=== PATIENT | female | born 1995 | race Caucasian/White ===

== ENCOUNTER 2019-10-16 20:54 | Emergency (ER) | payer BC, OTHER ==
[~2019-10-16] VITALS: Ht 160 cm; Wt 50.0 kg
[2019-10-16] MEDS ORDERED: LACTATED RINGERS 1,000 ML IV STA (21:04)
--- NOTE | 2019-10-16 21:10 | ED GI ---
General Chief Complaint: Abdominal/GI Problems Stated Complaint: VOMITING Source of Information: Patient History of Present Illness Date Seen by Provider: Oct 16, 2019 Time Seen by Provider: 20:55 Initial Comments PT ARRIVES VIA POV FROM HOME STATES "I'M DEHYDRATED" STATES SHE BEGAN HAVING NAUSEA AND VOMITING 1 HOUR AGO, AT 1945--HAS VOMITED X 4 NO DIARRHEA. STOOLS HAVE BEEN "SOFT" BUT FORMED NO ABDOMINAL PAIN NO FEVER NO URINARY SYMPTOMS--LAST VOID AT 1730 STATES SHE FELT COMPLETELY FINE ALL DAY UNTIL AN HOUR AGO NO KNOWN SICK CONTACTS --LIVES AT HOME WITH , BOTH ATE THE SAME THINGS AND HE IS NOT ILL NO SUSPICIOUS FOODS--ATE YOGURT AND GRANOLA FOR BREAKFAST, MAC AND CHEESE AND CRACKERS AND TRAIL MIX FOR LUNCH/THIS AFTERNOON ARRIVES WITH A NEARLY EMPTY 1 LITER BOTTLE OF WATER--STATES SHE DRINKS 1 LITER BOTTLE EVERY DAY PT STATES THIS IS A CHRONIC PROBLEMS SINCE 2008--STATES IT USED TO HAPPEN "REGULARLY" BUT NOW ONLY "SPORADICALLY" --NO DX. STATES LAST EPISODE WAS NOVEMBER 2018 LMP 09/07/19. NO CONTROL. STATES PERIODS ARE ALWAYS IRREGULAR. PCP: NONE--IS [facility] Allergies and Home Medications Allergies Coded Allergies: No Known Drug Allergies (Unverified , 10/16/19) Home Medications Ondansetron 8 Mg Tab.rapdis, 8 MG PO Q4H PRN for NAUSEA/VOMITING Prescribed by: SOMMER ALLEN on 10/16/192138 Patient Home Medication List Home Medication List Reviewed: Yes Review of Systems Review of Systems Constitutional: No chills, No diaphoresis, No dizziness, No fever; malaise EENTM: No Symptoms Reported Respiratory: No Symptoms Reported Cardiovascular: No Symptoms Reported Gastrointestinal: See HPI; Denies Abdominal Pain, Denies Constipated, Denies Diarrhea; Nausea, Vomiting Genitourinary: No Symptoms Reported Musculoskeletal: no symptoms reported Skin: no symptoms reported Psychiatric/Neurological: No Symptoms Reported Endocrine: No Symptoms Reported Hematologic/Lymphatic: No Symptoms Reported Past Ruuphor-Gsibqq-Tyshuw Hx Past Med/Social Hx: Reviewed and Corrections made Patient Social History Alcohol Use: Rarely Uses Alcohol Beverage of Choice: Wine Recreational Drug Use: No Smoking Status: Never a Smoker Recent Foreign Travel: No Contact w/Someone Who Travel: No Past Medical History Surgeries: Yes (BENIGN TUMOR FROM LEFT ARM 2000:WISDOM TEETH REMOVED 2009) Respiratory: No Cardiac: No Neurological: No Last Menstrual Period: Sep 07, 2019 Reproductive Disorders: Yes (IRREGULAR PERIODS) Female Reproductive Disorders: Menstrual Problems Genitourinary: No Gastrointestinal: Yes (FREQUENT NAUSEA/VOMITING) Gastroesophageal Reflux Musculoskeletal: No Endocrine: No HEENT: No Cancer: No Psychosocial: No Integumentary: No Blood Disorders: No Adverse Reaction/Blood Tranf: No Physical Exam Vital Signs Vital Signs - First Documented 10/16/19 21:01 Temp 36.7 Pulse 109 Resp 18 B/P (MAP) 113/84 (94) Pulse Ox 99 Capillary Refill : Less Than 3 Seconds Height/Weight/BMI Height: '" Weight: lbs. oz. kg; 19.00 BMI Method: General Appearance: WD/WN, no apparent distress, other (WALKS IN ON HER OWN, WITH HEAVY BLANKET, AND NEARLY EMPTY 1 LITER BOTTLE OF WATER. DOES NOT APPEAR ILL OR TO BE IN ANY DISCOMFORT OR DISTRESS. WALKS UPRIGHT AND MOVES WITHOUT DIFFICULTY. 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, no motor/sensory deficits, alert, normal mood/affect, oriented x 3 Skin: normal color, warm/dry Progress/Results/Core Measures Results/Orders Lab Results Laboratory Tests Test 10/16/19 21:05 10/16/19 21:10 Range/Units Urine Color YELLOW Urine Clarity CLEAR Urine pH 6.0 5-9 Urine Specific [place] 1.010 L 1.016-1.022 Urine Protein NEGATIVE NEGATIVE Urine Glucose (UA) NEGATIVE NEGATIVE Urine Ketones NEGATIVE NEGATIVE Urine Nitrite NEGATIVE NEGATIVE Urine Bilirubin NEGATIVE NEGATIVE Urine Urobilinogen 0.2 < = 1.0 MG/DL Urine Leukocyte Esterase TRACE H NEGATIVE Urine RBC (Auto) NEGATIVE NEGATIVE Urine RBC NONE /HPF Urine WBC 0-2 /HPF Urine Squamous Epithelial Cells 5-10 /HPF Urine Crystals NONE /LPF Urine Bacteria TRACE /HPF Urine Casts NONE /LPF Urine Mucus NEGATIVE /LPF Urine Culture Indicated NO Urine Opiates Screen NEGATIVE NEGATIVE Urine Oxycodone Screen NEGATIVE NEGATIVE Urine Methadone Screen NEGATIVE NEGATIVE Urine Propoxyphene Screen NEGATIVE NEGATIVE Urine Barbiturates Screen NEGATIVE NEGATIVE Ur Tricyclic Antidepressants Screen NEGATIVE NEGATIVE Urine Phencyclidine Screen NEGATIVE NEGATIVE Urine Amphetamines Screen NEGATIVE NEGATIVE Urine Methamphetamines Screen NEGATIVE NEGATIVE Urine Benzodiazepines Screen NEGATIVE NEGATIVE Urine Cocaine Screen NEGATIVE NEGATIVE Urine Cannabinoids Screen NEGATIVE NEGATIVE White Blood Count 15.2 H 4.3-11.0 10^3/uL Red Blood Count 5.26 4.35-5.85 10^6/uL Hemoglobin 14.6 11.5-16.0 G/DL Hematocrit 42 35-52 % Mean Corpuscular Volume 80 80-99 FL Mean Corpuscular Hemoglobin 28 25-34 PG Mean Corpuscular Hemoglobin Concent 35 32-36 G/DL Red Cell Distribution Width 12.8 10.0-14.5 % Platelet Count 312 130-400 10^3/uL Mean Platelet Volume 10.1 7.4-10.4 FL Neutrophils (%) (Auto) 84 H 42-75 % Lymphocytes (%) (Auto) 11 L 12-44 % Monocytes (%) (Auto) 4 0-12 % Eosinophils (%) (Auto) 0 0-10 % Basophils (%) (Auto) 0 0-10 % Neutrophils # (Auto) 12.7 H 1.8-7.8 X 10^3 Lymphocytes # (Auto) 1.7 1.0-4.0 X 10^3 Monocytes # (Auto) 0.7 0.0-1.0 X 10^3 Eosinophils # (Auto) 0.0 0.0-0.3 10^3/uL Basophils # (Auto) 0.0 0.0-0.1 10^3/uL Neutrophils % (Manual) 82 % Lymphocytes % (Manual) 11 % Monocytes % (Manual) 5 % Eosinophils % (Manual) 0 % Basophils % (Manual) 0 % Band Neutrophils 0 % Reactive Lymphocytes 2 % Blood Morphology Comment NORMAL Sodium Level 138 135-145 MMOL/L Potassium Level 3.6 3.6-5.0 MMOL/L Chloride Level 106 98-107 MMOL/L Carbon Dioxide Level 19 L 21-32 MMOL/L Anion Gap 13 5-14 MMOL/L Blood Urea Nitrogen 10 7-18 MG/DL Creatinine 0.81 0.60-1.30 MG/DL Estimat Glomerular Filtration Rate > 60 BUN/Creatinine Ratio 12 Glucose Level 108 H 70-105 MG/DL Calcium Level 9.6 8.5-10.1 MG/DL Corrected Calcium 8.5-10.1 MG/DL Magnesium Level 1.8 1.6-2.4 MG/DL Total Bilirubin 1.2 H 0.1-1.0 MG/DL Aspartate Amino Transf (AST/SGOT) 14 5-34 U/L Alanine Aminotransferase (ALT/SGPT) 6 0-55 U/L Alkaline Phosphatase 66 40-136 U/L Total Protein 7.8 6.4-8.2 GM/DL Albumin 4.7 H 3.2-4.5 GM/DL Amylase Level 96 25-125 U/L Lipase 31 8-78 U/L Serum Test, Qualitative NEGATIVE NEGATIVE Serum Alcohol < 10 <10 MG/DL My Orders Orders - SOMEMR ALLEN DO Ed Iv/Invasive Line Start (10/16/19 21:04) Urine Bedside (10/16/19 21:04) Monitor-Rhythm Ecg Trace Only (10/16/19 21:04) Alcohol (10/16/19 21:04) Amylase (10/16/19 21:04) Cbc With Automated Diff (10/16/19 21:04) Comprehensive Metabolic Panel (10/16/19 21:04) Drug Screen Stat (Urine) (10/16/19 21:04) Hcg,Qualitative Serum (10/16/19 21:04) Lipase (10/16/19 21:04) Magnesium (10/16/19 21:04) Ua Culture If Indicated (10/16/19 21:04) Ondansetron Injection (Zofran Injectio (10/16/19 21:15) Lactated Ringers (Lr 1000 Ml Iv Solution (10/16/19 21:04) Ed Iv/Invasive Line Start (10/16/19 21:04) Manual Differential (10/16/19 21:10) Rx-Ondansetron Po (Rx-Zofran Po) (10/16/19 21:39) Medications Given in ED Current Medications Medications Dose Ordered Sig/Nataliya Route Start Time Stop Time Status Last Admin Dose Admin Ondansetron HCl 8 mg ONCE ONCE IVP 10/16/19 21:15 10/16/19 21:16 DC 10/16/19 21:09 8 MG Vital Signs/I&O 10/16/19 10/16/19 21:01 21:50 Temp 36.7 36.7 Pulse 109 84 Resp 18 20 B/P (MAP) 113/84 (94) 113/84 (94) Pulse Ox 99 99 Progress Progress Note : Progress Note NO VOMITING DURING ER STAY--NAUSEA IMPROVED GIVEN ZOFRAN AND IV FLUIDS Departure Impression Primary Impression: Nausea and vomiting Disposition: 01 HOME, SELF-CARE Condition: Improved Departure-Patient Inst. Patient Instructions: Nausea and Vomiting, Adult (DC) Add. Discharge Instructions: CLEAR LIQUIDS, SIPS AT A TIME--WATER, BROTH, JELLO, GATORADE TOMORROW IF YOU ARE BETTER, ADD BRATS DIET TO CLEAR LIQUIDS--BANANAS, RICE, APPLESAUCE, TOAST, SALTINES FOLLOW UP WITH DR OF CHOICE IN 2-3 DAYS IF NO BETTER All discharge instructions reviewed with patient and/or family. Voiced understanding. Scripts Ondansetron (Ondansetron Odt) 8 Mg Tab.rapdis 8 MG PO Q4H PRN for NAUSEA/VOMITING, #10 TAB Prov: SOMMER ALLEN DO 10/16/19 SOMMER ALLEN DO Oct 16, 2019 21:10
[2019-10-16 21:13] LABS: BASOPHILS % (AUTO) 0 % (0-10); EOSINOPHILS % (AUTO) 0 % (0-10); HEMATOCRIT 42 % (35-52); HEMOGLOBIN 14.6 G/DL (11.5-16.0); LYMPHOCYTES # (AUTO) 1.7 X 10^3 (1.0-4.0); LYMPHOCYTES % (AUTO) 11 % (12-44); MEAN CORPUSCULAR HEMOGLOBIN 28 PG (25-34); MEAN CORPUSCULAR HGB CONC 35 G/DL (32-36); MEAN CORPUSCULAR VOLUME 80 FL (80-99); MEAN PLATELET VOLUME 10.1 FL (7.4-10.4); MONOCYTES # (AUTO) 0.7 X 10^3 (0.0-1.0); MONOCYTES % (AUTO) 4 % (0-12); NEUTROPHILS # (AUTO) 12.7 X 10^3 (1.8-7.8); NEUTROPHILS % (AUTO) 84 % (42-75); PLATELET COUNT 312 10^3/uL (130-400); RED CELL DISTRIBUTION WIDTH 12.8 % (10.0-14.5); WHITE BLOOD COUNT 15.2 10^3/uL (4.3-11.0)
[2019-10-16] MEDS ORDERED: ONDANSETRON 4 MG/2 ML (SDV) Z0FRAN IVP ONE (21:15)
[2019-10-16 21:16] LABS: BILIRUBIN,URINE NEGATIVE (NEGATIVE); CLARITY,URINE CLEAR; COLOR,URINE YELLOW; GLUCOSE, URINE (UA) NEGATIVE (NEGATIVE); KETONES,URINE NEGATIVE (NEGATIVE); LEUKOCYTE ESTERASE ,URINE TRACE (NEGATIVE); NITRITE,URINE NEGATIVE (NEGATIVE); PROTEIN,URINE NEGATIVE (NEGATIVE)
[2019-10-16 21:21] LABS: BACTERIA,URINE TRACE /HPF; WBC,URINE 0-2 /HPF
[2019-10-16 21:23] LABS: ALBUMIN 4.7 GM/DL (3.2-4.5); CHLORIDE 106 MMOL/L (98-107)
[2019-10-16 21:24] LABS: POTASSIUM 3.6 MMOL/L (3.6-5.0); SODIUM 138 MMOL/L (135-145)
[2019-10-16 21:25] LABS: AMYLASE 96 U/L (25-125); CALCIUM 9.6 MG/DL (8.5-10.1)
[2019-10-16 21:26] LABS: GLUCOSE 108 MG/DL (70-105); TOTAL PROTEIN 7.8 GM/DL (6.4-8.2)
[2019-10-16 21:26] LABS: AMPHETAMINE SCREEN, URINE NEGATIVE (NEGATIVE); BARBITURATE SCREEN URINE NEGATIVE (NEGATIVE); BENZODIAZEPINES SCREEN URINE NEGATIVE (NEGATIVE); CANNABINOID SCREEN, URINE NEGATIVE (NEGATIVE); COCAINE SCREEN URINE NEGATIVE (NEGATIVE); METHADONE STAT NEGATIVE (NEGATIVE); METHAMPHETAMINE SCREEN URINE S NEGATIVE (NEGATIVE); OPIATE SCREEN URINE NEGATIVE (NEGATIVE); OXYCODONE STAT NEGATIVE (NEGATIVE); PROPOXYPHENE STAT NEGATIVE (NEGATIVE); TRICYCLIC ANTIDEPRESSANTS SCRE NEGATIVE (NEGATIVE)
[2019-10-16 21:27] LABS: CARBON DIOXIDE 19 MMOL/L (21-32)
[2019-10-16 21:28] LABS: BILIRUBIN,TOTAL 1.2 MG/DL (0.1-1.0)
[2019-10-16 21:29] LABS: ALKALINE PHOSPHATASE 66 U/L (40-136); BAND NEUTROPHILS 0 %; BASOPHILS % (MANUAL) 0 %; EOSINOPHILS % (MANUAL) 0 %; LYMPHOCYTES % (MANUAL) 11 %; MONOCYTES % (MANUAL) 5 %; NEUTROPHILS % (MANUAL) 82 %; RBC MORPH NORMAL; REACTIVE LYMPHOCYTES 2 %
[2019-10-16 21:30] LABS: CREATININE SERUM 0.81 MG/DL (0.60-1.30); GFR ESTIMATED > 60
[2019-10-16 21:31] LABS: BUN/CREATININE RATIO 12
[2019-10-16 21:32] LABS: ALANINE AMINOTRANSFERASE 6 U/L (0-55); MAGNESIUM 1.8 MG/DL (1.6-2.4)
[2019-10-16 21:33] LABS: LIPASE 31 U/L (8-78)
[2019-10-16] MEDS ORDERED: RX-ONDANSETRON 4 MG ODT (ZOFRAN) PPK #4 PO STA (21:39)
[2019-10-16] MEDS ORDERED: ONDA8TAB13 PO (21:39)
[2019-10-16 21:50] VITALS: BP 113/84
--- OUTSIDE RECORDS SUMMARY | 2019-10-16 23:15 | XMS REPORT | Continuity of Care Document ---
Author Author [facility]. Organization [facility]. Address Unknown Phone Unavailable Care Team Providers Care Reconciling Clerk Name Role Phone [employer] Unavailable [phone] Insurance Providers Payer Name Policy Number Subscriber Name Relationship [facility] [id number] MATTIE GRADY BEENA F / SAME PATIENT Advance Directives Directive Response Recorded Date/Time Advance Directives: No 06/27/16 11:35pm Problems Active Medical Problems Problem Onset Date Recorded Date Status Abdominal discomfort Unknown 06/28/16 Active Nausea and vomiting Unknown 06/28/16 Active Medications Current Home Medications Medication Dose Units Route Directions Days/Qty Instructions Star t Date Ondansetron (Zofran) 4 MG TABLET 4 MG PO Q6-8 HR PRN BOZENA SEA 20 06/28/16 Family History Relationship Name Date of Condition Age ( At Onset ) Cause of Age ( At ) Age Gender Recorded Date/Time FATHER Family history of gastrointestinal disorder M 06/28/16 0033 Social History Query Response Start Date Stop Date Smoking status: Never smoker Hospital Discharge Instructions No hospital discharge instructions. Plan of Care Discharge Date 06/28/16 Disposition 01-HOME, SELF-CARE,ASST SHUKRI NG Condition at Discharge Stable Instructions/Education Provided Nausea and Vomiting, A dult (DC) Forms Provided Seen In ED Prescriptions See Medications Section Referrals [facility] - Call office to schedule Additional Instructions/Education 1. Take zofran every 6-8 hours as needed for nausea. 2. Increase your water/fluid intake. 3. Return to the emergency department wi th uncontrolled vomiting, fever, worsening/more frequent abdominal pain. 4. [facility] in order to to continue to follow your episodes of pain after fatty/acidic meals, your lipase level is normal today. Some of your test results may not be complete prior to your leaving the Emergency Department. The Emergency Department is not authorized to give test results over the phone. Please contact the doctor's office listed on this form for your final results. Follow up with your primary care physician or return to the Emergency Department for worsening or worrisome symptoms. * Emergency Department phone number: [phone] MEDICAL RECORD If you need copies of your X-rays, call [phone]. If you need copies of your medical record, including lab results, a signed authorization for release of records will be required. A telephone call for release of Health Information is not allowed. BILLING Billing can sometimes be confusing and frustrating. To help avoid confusion in the future, please take a moment to acquaint yourself with the billing parties for services. SERVICE BILLING [facility] ED Physician Services [phone] X-rays [facility] Patients will receive bills for services from the appropriate provider. If you have any questions about your [facility] bill, our staff will be happy to assist you. Please call [phone] and ask for the billing department. THANK YOU for choosing [facility] as your emergency care provider. Care Plan and Goals ~~Discharge Care Plan~~ Problem: Nausea, vomiting or diarrhea Goal: Decrease in nausea, vomiting or diarrhea Instructions: Encourage fluids approximately 6-8 glasses of water or noncarbonated fluids. Take medication(s) as directed. Follow home discharge instructions. Follow up with primary care physicians or mechanical project engineer as directed. Functional Status No functional status results. Allergies, Adverse Reactions, Alerts No known allergies. Immunizations Name Date Given Type Tetanus Less than 5 years ago Historical Vital Signs Vital Reading Collection Date/Time Result Blood Pressure 06/28/16 1:16am 108/64 Blood Pressure Source 06/27/16 11:35pm Sitting Patient Temperature 06/27/16 11:35pm 97.8 Temperature Source 06/27/16 11:35pm Oral Respiratory Rate 06/28/16 1:16am 20 Pulse Rate 06/28/16 1:16am 60 Pulse Location 06/27/16 11:35pm Pulse Oximetry Bedside Pulse Oximetry 06/28/16 1:16am 100 Height 06/27/16 11:35pm 160.0 cm Height 06/27/16 11:35pm 5 ft 03 in Weight 06/27/16 11:35pm 47.7 kg Weight 06/27/16 11:35pm 105.0 lb Body Mass Index 06/27/16 11:35pm 18.6 Results Laboratory Results Test Name Result Units Flags Reference Collection Date/Time Result Date/Time Comments White Blood Count 8.7 K/mm3 4.8-10.8 06/28/16 0:05am 06/28 0:34am Red Blood Count 4.63 M/mm3 4.10-5.30 06/28/16 0:05am 0:34am Hemoglobin 13.0 g/dl 12.5-16.0 06/28/16 0:05am 06/28/16 0: 34am Hematocrit 38.5 % 37.0-47.0 06/28/16 0:05am 06/28/16 0: 34am Mean Corpuscular Volume 83 fl 80.0-100.0 06/28/16 0:05 am 06/28/16 0:34am Mean Corpuscular Hemoglobin 28 pg 27.0-31.0 06/28/16 0 :05am 06/28/16 0:34am Mean Corpuscular Hemoglobin Concent 34 g/dl 33.0 -37.0 06/28/16 0:05am 06/28/16 0:34am Red Cell Distribution Width 12.2 % 11.5-14.5 06/28/16 0 :05am 06/28/16 0:34am Platelet Count 233 K/mm3 130-400 06/28/16 0:05am 06/28/16 0:34am Mean Platelet Volume 10.2 fl 7.4-10.4 06/28/16 0:05am 0:34am Granulocytes (%) 76.6 % H 42.2-75.2 06/28/16 0:05am 06/28 0:34am Lymphocytes % 15.5 % L 20.0-51.0 06/28/16 0:05am 06/28/16 0:34am Monocytes % 5.1 % 1.7-9.3 06/28/16 0:05am 06/28/16 0:3 4am Eosinophils % 2.3 % 0-4.0 06/28/16 0:05am 06/28/16 0 :34am Basophils % 0.3 % 0.0-2.0 06/28/16 0:05am 06/28/16 0:3 4am Granulocytes # 6.6 H 1.4-6.5 06/28/16 0:05am 06/28/16 0:34am Lymphocytes # 1.3 1.2-3.4 06/28/16 0:05am 06/28/16 0 :34am Monocytes # 0.4 0.1-0.6 06/28/16 0:05am 06/28/16 0:3 4am Eosinophils # 0.2 0.0-0.7 06/28/16 0:05am 06/28/16 0 :34am Basophils # 0.0 0.0-0.2 06/28/16 0:05am 06/28/16 0:3 4am Urine Collection Type CLEAN CATCH 06/28/16 0:05a m 06/28/16 0:24am Urine Color Yellow 06/28/16 0:05am 06/28/16 0:3 4am Urine Appearance Clear 06/28/16 0:05am 7 0:34am Urine Specific [place] 1.015 1.005-1.035 06/28/16 0:05 am 06/28/16 0:34am Urine pH 8 5-8 06/28/16 0:05am 06/28/16 0:34am Urine Protein Negative NEGATIVE 06/28/16 0:05am 06/28/16 0:34am Urine Glucose Negative NEGATIVE 06/28/16 0:05am 06/28/16 0:34am Urine Ketones Negative NEGATIVE 06/28/16 0:05am 06/28/16 0:34am Urine Bilirubin Negative NEGATIVE 06/28/16 0:05am 0:34am Urine Urobilinogen Negative mg/dL NEGATIVE 06/28/16 0:05am 0:34am Urine Nitrate Negative NEGATIVE 06/28/16 0:05am 06/28/16 0:34am Urine Blood 1+ H NEGATIVE 06/28/16 0:05am 06/28/16 0: 34am Urine Leukocyte Esterase Negative NEGATIVE 06/28/16 0:05 am 06/28/16 0:34am Urine WBC 0-2 /hpf 06/28/16 0:05am 06/28/16 0:34a m Urine RBC 20-50 /hpf H 06/28/16 0:05am 06/28/16 0:34a m Urine Squamous Epithelial Cells 0-2 /hpf 06/28/16 0:05am 06/28/16 0:34am Urine Bacteria None Seen /hpf 06/28/16 0:05am 7 0:34am Glucose Level 95 mg/dL 74-106 06/28/16 0:05am 06/28/16 0 :51am Blood Urea Nitrogen 15 mg/dL 7-17 06/28/16 0:05am 06/03 10/18 0:51am Creatinine 0.67 mg/dL 0.52-1.25 06/28/16 0:05am 06/28/16 0: 51am Estimated GFR () 133 7 0:05am 06/28/16 0:51am Estimated GFR (Non- 110 06/03 10/18 0:05am 06/28/16 0:51am eGFR Interpretation: Chronic Kidney Disease = CKD CKD STAGE I > or = 90 mL/min/1.73 square meters STAGE II 60 - 89 STAGE III 30 - 59 STAGE IV 15 - 29 STAGE V <15 NOTE: The MDRD Study equation has not been validated for use with the elderly (over 70 years of age), women, patients with serious comorbid conditions, or persons with extremes of body size, muscle mass, or nutritional status. Sodium Level 137 mmol/L 137-145 06/28/16 0:05am 06/28/16 0: 51am Potassium Level 3.7 mmol/L 3.4-5.0 06/28/16 0:05am 06/28/16 0:51am Chloride Level 105 mmol/L 98-107 06/28/16 0:05am 06/28/16 0:51am Carbon Dioxide Level 22 mmol/L 22-30 06/28/16 0:05am 0:51am Anion Gap 10 mmol/L 7-16 06/28/16 0:05am 06/28/16 0:51a m Calcium Level 9.3 mg/dL 8.4-10.2 06/28/16 0:05am 06/28/16 0:51am Calcium Adjusted for Albumin 9.2 mg/dL 8.4-10.2 0 06/28/16 0:05am 06/28/16 0:51am Serum Total Protein 7.2 gm/dL 6.4-8.2 06/28/16 0:05am /10/18 0:51am Albumin 4.1 gm/dL 3.5-5.0 06/28/16 0:05am 06/28/16 0:51am Total Bilirubin 1.2 mg/dL H 0.0-1.0 06/28/16 0:05am 06/28/16 0:51am Aspartate Amino Transf (AST/SGOT) 26 U/L 15-37 06/28/16 0:05am 06/28/16 0:51am Alanine Aminotransferase (ALT/SGPT) 24 U/L 9-52 06/28/16 0:05am 06/28/16 0:51am Alkaline Phosphatase 70 U/L 50-136 06/28/16 0:05am 0:51am Lipase 112 U/L 23-300 03/27/17 0:05am 06/28/16 0:51am Procedures No Known History of Procedures. Encounters Encounter Location Arrival/Admit Date Discharge/Depart Date Attending Provider Departed Emergency [facility] 06/27/16 11:32 pm 06/28/16 1:18am Jaspal Sommer Encounter Diagnosis Abdominal discomfort Nausea and vomiting
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
--- OUTSIDE RECORDS SUMMARY | 2019-10-16 23:15 | XMS REPORT | Continuity of Care Document ---
Author Author [facility] Organization [facility] Address [address] [place] [address] Phone Unavailable Care Team Providers Care Drum Stenciler Name Role Phone Rodrigue [employer] Unavailable [phone] Insurance Providers Payer Name Policy Number Subscriber Name Relationship [facility] [id number] MATTIE GRADY SELF / S RIANNA PATIENT Advance Directives Directive Response Recorded Date/Time Advance Directives: No 11/27/18 7:51pm Chief Complaint and Reason for Visit Reason [...] Route Directions Days/Qty Instructions Star t Date Omeprazole (PriLOSEC) 20 MG CAPSULE 20 MG By Mouth Once a day 30 11/27/18 Ondansetron (Zofran ODT) 4 MG ODT 4 MG By Mout h Three times daily as needed for nausea 10 11/27/18 clonazePAM (KlonoPIN) 1 MG TABLET 1 MG [...] FATHER Family history of gastrointestinal disorder M 11/27/182003 MOTHER Family history of gastrointestinal disorder F 11/27/182003 Social History Query Response Start Date Stop Date Smoking status: Never smoker Hospital Discharge Instructions No hospital discharge instructions. Plan of Care Discharge Date 11/27/18 Disposition 01-HOME, SELF-CARE,[facility]RIE Condition at Discharge Stable Instructions/Education Provided Irritable Bowel Syndro me Gastritis [place] Diet How to Throw Out Unused Drugs in the [place] Forms Provided Seen In ED Prescriptions See Medications Section Referrals [facility] - Additional Instructions/Education -take the omeprazole daily- start tomorrow evening -recheck at [facility], a referral to GI karen ht be helpful with persistant symptoms -clear liquids and bland diet Some of your test results may not [...] worrisome symptoms. * Emergency Department phone number: [phone] MEDICAL RECORD If you need copies of your X-rays, call [phone]. If you need copies of your medical record, including lab results, a signed authorization for release of records will be required. A telephone call for release of Health Information is not allowed. BILLING Billing can sometimes be confusing and frustrating. To help avoid confusion in the future, please take a moment to acquaint yourself with the billing parties for services. [employer]ICE B[employer]ING [employer] [facility] ED Physician Services [phone] X-rays [place] [facility] Patients will receive bills for services from the appropriate provider. If you have any questions about your [facility] bill, our staff will be happy to assist you. Please call [phone] and ask for the billing department. THANK YOU for choosing [facility] as your emergency care provider. Care Plan and Goals ~~Discharge Care Plan~~ Problem: Abdominal pain Goal: Decreased level of pain. Return to usual activities. Instructions: Take medication(s) as directed; follow up with primary care physician as directed; follow patient home care instructions. Functional Status No functional status results. Allergies, Adverse Reactions, Alerts No known allergies. Immunizations No Known History of Immunizations. Vital Signs Vital Reading Collection Date/Time Result Blood Pressure 11/27/18 10:34pm 111/73 Blood Pressure Source 11/27/18 7:51pm Sitting Temperature 11/27/18 7:51pm 98.4 F Temperature Source 11/27/18 7:51pm Temporal Respiratory Rate 11/27/18 7:51pm 18 Pulse Rate 11/27/18 10:34pm 98 Pulse Location 11/27/18 10:34pm Pulse Oximetry Bedside Pulse Oximetry 11/27/18 10:34pm 99 Height 11/27/18 7:51pm 5 ft 2.99 in Height 11/27/18 7:51pm 160 cm Weight 11/27/18 7:51pm 105 lb Weight 11/27/18 7:51pm 47.7 kg Body Mass Index 11/27/18 7:51pm 18.6 kg/m2 Results Laboratory Results Test Name Result Units Flags Reference Collection Date/Time Result Date/Time Comments Urine Collection Type CLEAN CATCH 11/27/18 8:43p m 11/27/18 8:51pm Urine Color Yellow 11/27/18 8:43pm 11/27/18 9:0 8pm Urine Appearance Hazy 11/27/18 8:43pm 9 9:08pm Urine Specific [facility] 1.015 1.005-1.035 11/27/18 8:43 pm 11/27/18 9:08pm Urine pH 9 H 5-8 11/27/18 8:43pm 11/27/18 9:08pm Urine Protein Negative NEGATIVE 11/27/18 8:43pm 11/27/18 9:08pm Urine Glucose Negative NEGATIVE 11/27/18 8:43pm 11/27/18 9:08pm Urine Ketones 2+ H NEGATIVE 11/27/18 8:43pm 11/27/18 9:08pm Urine Bilirubin Negative NEGATIVE 11/27/18 8:43pm 9:08pm Urine Urobilinogen Negative mg/dL NEGATIVE 11/27/18 8:43pm 9:08pm Urine Nitrate Negative NEGATIVE 11/27/18 8:43pm 11/27/18 9:08pm Urine Blood Negative NEGATIVE 11/27/18 8:43pm 11/27/18 9 :08pm Urine Leukocyte Esterase Trace H NEGATIVE 11/27/18 8:43p m 11/27/18 9:08pm Urine WBC 0-2 11/27/18 8:43pm 11/27/18 9:08p m Urine RBC 0-2 /hpf 11/27/18 8:43pm 11/27/18 9:08p m Urine Squamous Epithelial Cells 2-5 /hpf 11/27/18 8:43pm 11/27/18 9:08pm Urine Mucus Present /lpf 11/27/18 8:43pm 11/27/18 9:0 8pm Urine Bacteria None Seen /hpf 11/27/18 8:43pm 9 9:08pm White Blood Count 13.9 k/mm3 H 4.8-10.8 11/27/18 8:00pm 11/27 8:36pm Red Blood Count 5.21 M/mm3 4.10-5.30 11/27/18 8:00pm 8:36pm Hemoglobin 14.4 g/dl 12.5-16.0 11/27/18 8:00pm 11/27/18 8: 36pm Hematocrit 43.1 % 37.0-47.0 11/27/18 8:00pm 11/27/18 8: 36pm Mean Corpuscular Volume 83 fl 80.0-100.0 11/27/18 8:00 pm 11/27/18 8:36pm Mean Corpuscular Hemoglobin 28 pg 27.0-31.0 11/27/18 8 :00pm 11/27/18 8:36pm Mean Corpuscular Hemoglobin Concent 33 g/dl 33.0 -37.0 11/27/18 8:00pm 11/27/18 8:36pm Red Cell Distribution Width 12.3 % 11.5-14.5 11/27/18 8 :00pm 11/27/18 8:36pm Platelet Count 283 K/mm3 130-400 11/27/18 8:00pm 11/27/18 8:36pm Mean Platelet Volume 10.8 fl H 7.4-10.4 11/27/18 8:00pm 8:36pm Granulocytes (%) 77.7 % H 42.2-75.2 11/27/18 8:00pm 11/27 8:36pm Lymphocytes % 16.0 % L 20.0-51.0 11/27/18 8:00pm 11/27/18 8:36pm Monocytes % 5.3 % 1.7-9.3 11/27/18 8:00pm 11/27/18 8:3 6pm Eosinophils % 0.3 % 0-4.0 11/27/18 8:00pm 11/27/18 8 :36pm Basophils % 0.3 % 0.0-2.0 11/27/18 8:00pm 11/27/18 8:3 6pm Granulocytes # 10.8 H 1.4-6.5 11/27/18 8:00pm 11/27/18 8:36pm Lymphocytes # 2.2 1.2-3.4 11/27/18 8:00pm 11/27/18 8 :36pm Monocytes # 0.7 H 0.1-0.6 08/26/19 8:00pm 11/27/18 8:3 6pm Eosinophils # 0.0 0.0-0.7 11/27/18 8:00pm 11/27/18 8 :36pm Basophils # 0.0 0.0-0.2 11/27/18 8:00pm 11/27/18 8:3 6pm Glucose Level 118 mg/dL H 74-106 11/27/18 8:00pm 11/27/18 8 :49pm Blood Urea Nitrogen 10 mg/dL 10-1811/27/18 8:00pm 11/03 09/20 8:49pm Creatinine 0.65 0.52-1.25 11/27/18 8:00pm 11/27/18 8: 49pm Estimated GFR () 136 9 8:00pm 11/27/18 8:49pm Estimated GFR (Non- 112 11/03 09/20 8:00pm 11/27/18 8:49pm eGFR Interpretation: Chronic Kidney Disease = CKD [...] muscle mass, or nutritional status. Sodium Level 142 mmol/L 137-145 11/27/18 8:00pm 11/27/18 8: 49pm Potassium Level 3.5 mmol/L 3.4-5.0 11/27/18 8:00pm 11/27/18 8:49pm Chloride Level 102 mmol/L 98-107 11/27/18 8:00pm 11/27/18 8:49pm Carbon Dioxide Level 25 mmol/L 22-30 11/27/18 8:00pm 8:49pm Anion Gap 15 mmol/L 7-16 11/27/18 8:00pm 11/27/18 8:49p m Calcium Level 10.1 mg/dL 8.4-10.2 11/27/18 8:00pm 11/27/18 8:49pm Calcium Adjusted for Albumin 9.3 mg/dL 8.4-10.2 0 11/27/18 8:00pm 11/27/18 8:49pm Serum Total Protein 8.2 gm/dL 6.4-8.2 11/27/18 8:00pm 11/03 09/20 8:49pm Albumin 5.0 gm/dL 3.5-5.0 11/27/18 8:00pm 11/27/18 8:49pm Total Bilirubin 1.4 mg/dL H 0.0-1.0 11/27/18 8:00pm 11/27/18 8:49pm Aspartate Amino Transf (AST/SGOT) 23 U/L 15-37 11/27/18 8:00pm 11/27/18 8:49pm Alanine Aminotransferase (ALT/SGPT) 10 U/L 9-52 11/27/18 8:00pm 11/27/18 8:49pm Alkaline Phosphatase 70 U/L 50-136 11/27/18 8:00pm 8:49pm C-Reactive Protein < 0.5 mg/dL 0.0-0.9 11/27/18 8:00pm 11/27 8:49pm Procedures No Known History of Procedures. Encounters Encounter Location Arrival/Admit Date Discharge/Depart Date Attending Provider Departed Emergency [facility] 11/27/18 7:44p m 11/27/18 10:34pm Maldonado Davey MD Encounter Diagnosis Onset Date Vomiting
--- OUTSIDE RECORDS SUMMARY | 2019-10-16 23:15 | XMS REPORT | Continuity of Care Document ---
Author Author [facility] Organization [facility] Address [address] [place] [address] Phone Unavailable Care Team Providers Care Loom Technician Name Role Phone [facility] Unavailable [phone] Insurance Providers Payer Name Policy Number Subscriber Name Relationship [facility] [id number] CHANDRAKANT GRADY FATHER Advance Directives Directive Response Recorded Date/Time Advance Directives: No 08/08/17 9:41pm Chief Complaint and Reason for Visit Reason for Visit Problems Active Medical Problems Problem Onset Date Recorded Date Status Abdominal discomfort Unknown 06/28/16 Active Nausea and vomiting Unknown 06/28/16 Active Medications Current Home Medications Medication Dose Units Route Directions Days/Qty Instructions Star t Date Ondansetron (Zofran) 4 MG TABLET 4 MG By Mouth Q6-8 HR as needed for NAUSEA 20 06/28/16 hydrOXYzine HCl (Atarax) 50 MG TABLET 50 MG By Mouth Three shannon es daily Family History Relationship Name Date of Condition Age ( At Onset ) Cause of Age ( At ) Age Gender Recorded Date/Time FATHER Family history of gastrointestinal disorder M 08/08/172155 MOTHER Family history of gastrointestinal disorder F 08/08/172155 Social History Query Response Start Date Stop Date Smoking status: Never smoker Hospital Discharge Instructions No hospital discharge instructions. Plan of Care Discharge Date 08/08/17 Disposition 01-HOME, SELF-CARE,ASST SHUKRI NG Condition at Discharge Stable Instructions/Education Provided Nausea and Vomiting, A dult Forms Provided Seen In ED Prescriptions See Medications Section Ref[facility] Additional Instructions/Education Home to rest Drink lots of water Follow up with your doctor if symptoms don't resolve Can use Zofran as needed for nausea Return to the ER for fevers, uncontrolled vomiting, constant abdominal pain, or other concerns Some of your test results may not [...] worrisome symptoms. * Emergency Department phone number: [phone] MEDICAL RECORD If you need copies of your X-rays, call [phone]. If you need copies of your medical [...] SERVICE BILLING DEMOCRAT Emergency [facility] ED Physician Services [phone] X-rays [place] [facility] Patients will receive bills for services from the appropriate provider. If you have any questions about your [facility] bill, our staff will be happy to assist you. Please call [phone] and ask for the billing department. THANK YOU for choosing [facility] as your emergency care provider. Care Plan and Goals ~~Discharge Care Plan~~ Problem: Nausea, vomiting or diarrhea Goal: Decrease in nausea, vomiting or diarrhea Instructions: Encourage fluids approximately 6-8 glasses of water or noncarbonated fluids. Take medication(s) as directed. Follow home discharge instructions. Follow up with primary care physicians or castings trimmer as directed. Functional Status No functional status results. Allergies, Adverse Reactions, Alerts No known allergies. Immunizations No Known History of Immunizations. Vital Signs Vital Reading Collection Date/Time Result Blood Pressure 08/08/17 11:21pm 107/77 Blood Pressure Source 08/08/17 11:21pm Sitting Temperature 08/08/17 9:41pm 96.9 F Temperature Source 08/08/17 9:41pm Oral Respiratory Rate 08/08/17 11:21pm 12 Pulse Rate 08/08/17 11:21pm 57 Pulse Location 08/08/17 9:41pm Pulse Oximetry Bedside Pulse Oximetry 08/08/17 11:21pm 100 Weight 08/08/17 9:41pm 102 lb Weight 08/08/17 9:41pm 46.4 kg Results No known relevant diagnostic tests, laboratory data and/or discharge summary. Procedures No Known History of Procedures. Encounters Encounter Location Arrival/Admit Date Discharge/Depart Date Attending Provider Departed Emergency [facility] 08/08/17 9:33p m 08/08/17 11:18pm Hilton Montiel MD Encounter Diagnosis Onset Date Nausea and vomiting
== END 2019-10-16 21:51 | disposition home or self-care (01) ==
LOC: ER 20:55
DX: R11.2 Nausea with vomiting, unspecified (principal)
CPT/HCPCS: 80053; 80306; 81000; 82150; 83690; 83735; 84703 ×2; 85007; 85027; 93041; 99284; G0480; 36415; 80320